=== PATIENT | male | born 1975 | race African-American/Black ===

== ENCOUNTER 2020-09-24 21:31 | Emergency (ER) | payer OTHER ==
[2020-09-24] MEDS ORDERED: Lidocaine 1% w/Epinephrine 1:100K 20 ML VIAL ONE (21:55)
[2020-09-24] MEDS ORDERED: Acetaminophen 500 MG TAB ONE (21:56)
[2020-09-24] MEDS ORDERED: Bacitracin 1 PK ONE (23:30)
== END 2020-09-25 00:17 ==
LOC: CSHERS 21:31
DX: S06.0X0A Concussion without loss of consciousness, initial encounter (principal); S01.01XA Laceration without foreign body of scalp, initial encounter; S50.11XA Contusion of right forearm, initial encounter; I12.9 Hypertensive chronic kidney disease with stage 1 through stage 4 chronic kidney disease, or unspecified chronic kidney disease; N18.9 Chronic kidney disease, unspecified; Z79.899 Other long term (current) drug therapy; Y04.8XXA Assault by other bodily force, initial encounter
CPT/HCPCS: 12002; 70450